=== PATIENT | male | born 2000 | race Caucasian/White ===

== ENCOUNTER 2020-10-19 13:07 | Emergency (ER) | payer OTHER, SELFPAY ==
[2020-10-19 13:08] VITALS: BP 131/80; PULSE 81; RESP 14; TEMP 36.8; O2SAT 96; BMI 32.3
--- NOTE | 2020-10-19 14:28 | CT_ITS ---
HISTORY: Peritonsillar abscess EXAMINATION: CT Soft Tissue Neck W/ Contrast Injection TECHNIQUE: Helically acquired images were obtained of the neck following IV contrast. A radiation dose optimization technique was used for this scan. IV Contrast dosage and agent: 100ML ISOVUE 300 COMPARISON: None FINDINGS: NASOPHARYNX: Unremarkable. SUPRAHYOID NECK: Enlargement of the bilateral palatine tonsils without peritonsillar collection, otherwise unremarkable oropharynx, oral cavity, parapharyngeal space, and retropharyngeal space. INFRAHYOID NECK: Unremarkable larynx, hypopharynx, and supraglottis. THYROID: No focal lesions. SALIVARY GLANDS: Unremarkable. LYMPH NODES: No cervical or supraclavicular lymphadenopathy. VASCULAR STRUCTURES: Unremarkable. VISUALIZED PORTIONS OF THE ORBITS, PARANASAL SINUSES, MASTOID AIR CELLS AND SKULL BASE: Unremarkable. BONES: Unremarkable. THORACIC INLET: Clear lung apices. CT/Soft Tissue Neck WITH Contrast IMPRESSION: Bilateral tonsillar enlargement without peritonsillar abscess. Individualized dose optimization techniques were used for this CT. at 1544 Reported and signed by: Jeramy Zeng MD Electronically Signed: Jeramy Zeng MD at 15:43 EDT Tel , Service support ,
[2020-10-19 14:58] VITALS: BP 126/79; PULSE 76; RESP 15; O2SAT 98
[2020-10-19 15:03] LABS: Absolute Lymphocyte Count 1.03 X10^3/uL (0.83-4.51); Absolute Neutrophil Count 4.9 X10^3/uL (2.0-7.7); Basophil# 0.05 X10^3/uL; Basophil% 0.7 % (0-1); Eosinophil# 0.07 X10^3/uL; Hematocrit 49.1 % (40-54); Hemoglobin 16.5 g/dL (13.0-16.5); Lymphocyte # 1.03 X10^3/ul (0.83-4.51); Mean Corp Hgb Conc 33.6 g/dL (32-36); Mean Corpuscular Hgb 28.3 pg (27.0-32.0); Mean Corpuscular Volume 84.2 fL (80-94); Mean Platelet Vol. 8.8 fl (6.2-12.0); Monocyte# 0.84 X10^3/uL; Monocyte% 12.2 % (0-10); NRBC Flagged by Analyzer 0 % (0-5); Neutrophil # 4.87 X10^3/uL (2.7-7.7); Neutrophil % 70.8 % (47-70); Platelet Count 316 K/mm3 (150-450); RBC Distribution Width CV 12.8 % (11.6-14.6); RBC Distribution Width SD 39.3 fl (35.1-43.9); Red Blood Count 5.83 M/mm3 (4.6-6.2); White Blood Count 6.9 K/mm3 (4.4-11.0)
[2020-10-19 15:16] LABS: Anion Gap 5 (5-15); BUN 10 mg/dL (7-18); BUN/Creat Ratio 12.1 RATIO (10-20); Calcium,Total 9.5 mg/dL (8.5-10.1); Chloride 102 mmol/L (98-107); Creatinine, Serum 0.83 mg/dL (0.70-1.30); EST Glomerular Filtration Rate 123 mL/min (>60); Est Glom Filt Rate - Afr Amer 149 mL/min (>60); Estimated Creatinine Clearance 121.44 ml/min; Glucose 90 mg/dL (74-106); Potassium 4.1 mmol/L (3.5-5.1); Sodium Level 136 mmol/L (136-145)
--- NOTE | 2020-10-19 16:05 | EX.ED.VIS.UR ---
HPI HPI - URI History of Present Illness Chief Complaint: Sore Throat Informant: patient Onset/Context/Timing Onset: Days (3-4) Context: Gradual Onset Timing: Continuous Quality: Swelling Location: Throat Worsened by: Swallowing Relieved by: - (Nothing) Associated Symptoms Associated Symptoms: Positive for Nausea, Shortness of Breath and Nonproductive cough; Negative for Headache, Sinus Pressure, Vomiting, Diarrhea, Chest Pain, Hemoptysis and Productive Cough Narrative Narrative: Patient presents with a sore throat that has been getting worse over the last 3 to 4 days. Patient states it is worse with swallowing. Patient admits to a dry cough. Patient denies any fevers or chills. Patient states he went to an urgent care today where they did a strep test and mono test and they were both negative. Patient then came to the emergency department because he was having difficulty swallowing. Patient admits to some mild dyspnea. Patient also admits to some nausea but denies any vomiting. ROS ROS ED Constitutional Constitutional ED: Denies chills or fever(s) Eyes Eyes: Denies blurry vision or change in vision ENT ENT ED: Reports sore throat; Denies rhinorrhea Cardiovascular Cardiovascular: Denies chest pain or palpitations Respiratory/Chest Respiratory/Chest: Reports cough and dyspnea Gastrointestinal Gastrointestinal: Reports nausea; Denies vomiting Genitourinary Genitourinary ED: Denies dysuria or hematuria Musculoskeletal Musculoskeletal: Denies back pain or neck pain Integumentary Denies abscess or rash Neurologic Neurologic: Denies headache(s) or weakness Allergic/Immunologic Allergic/Immunologic ED: Denies mouth swelling or urticaria PFSH PFSH Medical History Smoker no medical history Home Medications amoxicillin-pot clavulanate 875 mg PO Q12H #20 tablet 10/19/20 [Rx Last Taken Unknown] dexamethasone 6 mg PO DAILY #7 tab 10/19/20 [Rx Last Taken Unknown] Allergy/AdvReac Type Severity Reaction Status Date / Time No Known Allergies Allergy Verified 10/19/20 13:09 Surgical History History of placement of ear tubes History of tonsillectomy and adenoidectomy Social History Smoking Status: Current some day smoker tobacco type: e-cigarettes EXAM Physical Exam Const Vital Signs: 10/19/20 13:08 10/19/20 13:23 10/19/20 14:58 Temperature 98.3 F Temperature Source Temporal Pulse Rate 81 76 Respiratory Rate 14 15 Respiratory Effort Normal Respiratory Pattern Normal Blood Pressure 131/80 H 126/79 H Blood Pressure Mean 97 94 Pulse Ox 96 98 Oxygen Delivery Method Room Air Room Air Positive well nourished and well developed General Appearance ED: well developed HEENT Reports moist mucous membranes normocephalic Throat: tonsils abnormal bilateral erythema and hypertrophy 3+ Neck supple, no meningeal signs and no JVD General: lymphadenopathy anterior cervical tender Resp normal respiratory effort and clear to auscultation bilaterally Cardio Rate: regular rate Rhythm: regular rhythm Neuro oriented x3, CN's II-XII intact bilaterally and no sensory deficits noted Sensorium / Orientation: alert Motor Exam: strength 5/5 throughout Psych mental status grossly normal MDM MDM MDM Narrative Medical decision making narrative: CBC and basic metabolic profile were obtained were within normal limits. CT scan of the soft tissue neck was obtained. There is bilateral tonsillar enlargement but no peritonsillar abscess. There is no other abscess noted. This was interpreted by the radiologist and reviewed by myself. Patient was advised of his findings. Patient was given a prescription for Augmentin and Decadron. Patient was given his first dose here. Patient was instructed to follow-up with his primary care physician in 5 to 7 days. Patient was instructed to return if worse in any way. Patient and family understood and were agreeable with the plan. All questions were answered. Lab Data Attestation: I reviewed the patient's lab results. Labs: Laboratory Results - last 24 hr 10/19/20 10/19/20 14:56 14:56 WBC 6.9 RBC 5.83 Hgb 16.5 Hct 49.1 MCV 84.2 MCH 28.3 MCHC 33.6 RDW Std Deviation 39.3 RDW Coeff of Alena 12.8 Plt Count 316 MPV 8.8 Immature Gran % (Auto) 0.300 Neut % (Auto) 70.8 H Lymph % (Auto) 15.0 L [place] % (Auto) 12.2 H Eos % (Auto) 1.0 Baso % (Auto) 0.7 Absolute Neuts (auto) 4.9 Absolute Lymphs (auto) 1.03 Nucleated RBC % 0 Sodium 136 Potassium 4.1 Chloride 102 Carbon Dioxide 29.0 Anion Gap 5 BUN 10 Creatinine 0.83 Estim Creat Clear Calc 121.44 Est GFR (MDRD) Af Amer 149 Est GFR (MDRD) Non-Af 123 BUN/Creatinine Ratio 12.1 Glucose 90 Calcium 9.5 Radiography Diagnostic Testing: Radiology Impression Soft Tissue Neck CT 10/19/20 14:28 IMPRESSION: Bilateral tonsillar enlargement without peritonsillar abscess. Individualized dose optimization techniques were used for this CT. at 1544 Reported and signed by: Jeramy Zeng MD Electronically Signed: Jeramy Zeng MD at 15:43 EDT Tel , Service support , Discharge Plan Triage Chief Complaint: Sore Throat ED Provider: Lan Landry Dx/Rx/DC Orders Clinical Impression: Acute tonsillitis Instructions: ED Tonsillitis Prescriptions: New dexamethasone 6 MG tablet 6 mg PO DAILY Qty: 7 RF: 0 amoxicillin-pot clavulanate [amoxicillin-pot clavulanate] 875 MG tablet 875 mg PO Q12H Qty: 20 RF: 0 Primary Care Provider: Care Physician,No Primary Referrals: Care Physician,No Primary [Primary Care Provider] - Doctor,Your [STAFF PHYSICIAN] - 5-7 Days Disposition Disposition: Home, Self Care
[2020-10-19] MEDS: Amox/Clavulanate 875 MG Tablet PO (16:25)
[2020-10-19 16:26] VITALS: BP 126/79
== END 2020-10-19 16:34 | disposition home or self-care (01) ==
PROVIDERS: Emergency Provider Emergency Medicine
DX: J03.90 Acute tonsillitis, unspecified (principal); F17.290 Nicotine dependence, other tobacco product, uncomplicated
CPT/HCPCS: 70491; 80048; 85025; 99284; A4216